=== PATIENT | female | born 1995 | race Caucasian/White ===

== ENCOUNTER 2018-05-09 16:59 | Emergency (ER) | payer OTHER | END 2018-05-09 17:10 | disposition home or self-care (01) | LOC: MW.ED 16:59 | DX: Z53.21 Procedure and treatment not carried out due to patient leaving prior to being seen by health care provider (principal) ==

== ENCOUNTER 2019-01-12 20:06 | Emergency (ER) | payer OTHER ==
--- NOTE | 2019-01-12 20:18 | EDM.PDOC ---
ED HPI GENERAL MEDICAL PROBLEM - General Chief Complaint: Abdominal Pain Stated Complaint: ABD PAIN Time Seen by Provider: 01/12/19 20:11 - History of Present Illness INITIAL COMMENTS - FREE TEXT/NARRATIVE: HISTORY AND PHYSICAL: History of present illness: Patient's 23-year-old white female presents with a concern of 2 year history of intermittent crampy abdominal pain along with irregular bowel movements. She missed work today and was concerned about evaluation for this chronic pain as well as a note for work. There is no fever chills nausea vomiting urinary symptoms or other complaints Review of systems: As per history of present illness and below otherwise all systems reviewed and negative. Past medical history: As per history of present illness and as reviewed below otherwise noncontributory. Surgical history: As per history of present illness and as reviewed below otherwise noncontributory. Social history: No reported history of drug or alcohol abuse. Family history: As per history of present illness and as reviewed below otherwise noncontributory. Physical exam: HEENT: Atraumatic, normocephalic, pupils reactive, negative for conjunctival pallor or scleral icterus, mucous membranes moist, throat clear, neck supple, nontender, trachea midline. Lungs: Clear to auscultation, breath sounds equal bilaterally, chest nontender. Heart: S1S2, regular, negative for clicks, rubs, or JVD. Abdomen: Soft, nondistended, nontender. Negative for masses or hepatosplenomegaly. Negative for costovertebral tenderness. Pelvis: Stable nontender. Genitourinary: Deferred. Rectal: Deferred. Extremities: Atraumatic, negative for cords or calf pain. Neurovascular unremarkable. Neuro: Awake, alert, oriented. Cranial nerves II through XII unremarkable. Cerebellum unremarkable. Motor and sensory unremarkable throughout. Exam nonfocal. Diagnostics: CBC CMP amylase lipase UA hCG abdominal series with chest x-ray Therapeutics: None Impression: #1 chronic intermittent abdominal pain etiology to be determined Definitive disposition and diagnosis as appropriate pending reevaluation and review of above. - Related Data Allergies Allergy/AdvReac Type Severity Reaction Status Date / Time No Known Allergies Allergy Verified 01/12/19 20:16 Home Meds: Home Meds . [No Known Home Meds] 04/28/18 [History] Past Medical History - Past Health History Medical/Surgical History: Denies Medical/Surgical History ED ROS GENERAL - Review of Systems Review Of Systems: ROS reveals no pertinent complaints other than HPI. ED EXAM, GENERAL - Physical Exam Exam: See Below (See dictation) Course - Orders/Labs/Meds Orders: Active Orders 24 hr Category Date Time Status Abdomen Series w Chest 1V [CR] Stat Exams 01/12/19 20:16 Ordered AMYLASE [CHEM] Stat Lab 01/12/19 20:15 Ordered CBC WITH AUTO DIFF [HEME] Stat Lab 01/12/19 20:15 Ordered COMPREHENSIVE METABOLIC PN,CMP [CHEM] Stat Lab 01/12/19 20:16 Ordered HCG QUALITATIVE,SERUM [CHEM] Stat Lab 01/12/19 20:16 Ordered UA RFX STEFANIA AND CULT IF INDIC [URIN] Stat Lab 01/12/19 20:16 Ordered Departure - Departure Time of Disposition: 20:17 Disposition: Home, Self-Care 01 Condition: Good Clinical Impression: Chronic abdominal pain - Discharge Information Referrals: PCP,None [Primary Care Provider] - Additional Instructions: The following information is given to patients seen in the emergency department who are being discharged to home. This information is to outline your options for follow-up care. We provide all patients seen in our emergency department with a follow-up referral. The need for follow-up, as well as the timing and circumstances, are variable depending upon the specifics of your emergency department visit. If you don't have a primary care physician on staff, we will provide you with a referral. We always advise you to contact your personal physician following an emergency department visit to inform them of the circumstance of the visit and for follow-up with them and/or the need for any referrals to a consulting specialist. The emergency department will also refer you to a specialist when appropriate. This referral assures that you have the opportunity for followup care with a specialist. All of these measure are taken in an effort to provide you with optimal care, which includes your followup. Under all circumstances we always encourage you to contact your private physician who remains a resource for coordinating your care. When calling for followup care, please make the office aware that this follow-up is from your recent emergency room visit. If for any reason you are refused follow-up, please contact the [facility] emergency department at and asked to speak to the emergency department charge nurse. [facility] [address] [place] [id number] [facility] Specialty Care - General Surgery Professional Building [address] [place] [address], [address] [place] [address] Follow-up primary care in Gen. surgery above: Schedule routine appointments return as needed as discussed - My Orders Last 24 Hours: My Active Orders 01/12/19 20:15 AMYLASE [CHEM] Stat CBC WITH AUTO DIFF [HEME] Stat 01/12/19 20:16 Abdomen Series w Chest 1V [CR] Stat COMPREHENSIVE METABOLIC PN,CMP [CHEM] Stat HCG QUALITATIVE,SERUM [CHEM] Stat UA RFX STEFANIA AND CULT IF INDIC [URIN] Stat - Assessment/Plan Last 24 Hours: My Active Orders 01/12/19 20:15 AMYLASE [CHEM] Stat CBC WITH AUTO DIFF [HEME] Stat 01/12/19 20:16 Abdomen Series w Chest 1V [CR] Stat COMPREHENSIVE METABOLIC PN,CMP [CHEM] Stat HCG QUALITATIVE,SERUM [CHEM] Stat UA RFX STEFANIA AND CULT IF INDIC [URIN] Stat
[2019-01-12 20:50] LABS: CHLORIDE,CL 104 mmol/L (98-107); SODIUM,NA 140 mmol/L (136-145)
--- NOTE | 2019-01-12 21:29 | CR ---
INDICATION: : Abdominal pain for approximately 2 years. COMPARISON: None available. FINDINGS: Erect and supine films of the abdomen were combined with an erect film of the chest. In the abdomen, there is no sign of distention of the small bowel or colon to suggest obstruction or ileus. There is no sign of free air or distinct mass. The osseous structures are normal in appearance for the patient`s age. In the chest, the lungs are clear and the heart and mediastinum are normal in appearance. IMPRESSION: Normal abdomen two views with chest. Dictated by Robbi Villarreal MD @ Jan 12 2019 9:26PM Signed by Dr. Robbi Villarreal @ Jan 12 2019 9:27PM
== END 2019-01-12 21:15 | disposition home or self-care (01) ==
LOC: MW.ED 20:06
DX: R10.9 Unspecified abdominal pain (principal); G89.29 Other chronic pain
CPT/HCPCS: 36415; 74022; 74022-26; 80053; 81001; 82150; 83690; 84703; 85025; 87086; 99283; 99284-25

== ENCOUNTER 2019-03-22 19:52 | Emergency (ER) | payer OTHER ==
[2019-03-22] MEDS ORDERED: Ketorolac 30 MG/ML SDV IVPUSH ONE (19:55)
[2019-03-22] MEDS ORDERED: Sodium Chloride 0.9% 1,000 ML IV ONE (19:55)
[2019-03-22] MEDS ORDERED: Ondansetron 4 MG/2 ML SDV IVPUSH ONE (19:55)
--- NOTE | 2019-03-22 19:58 | EDM.PDOC ---
ED HPI GENERAL MEDICAL PROBLEM - General Chief Complaint: Abdominal Pain Stated Complaint: STOMACH PAIN Time Seen by Provider: 03/22/19 19:55 Source of Information: Reports: Patient History Limitations: Reports: No Limitations - History of Present Illness INITIAL COMMENTS - FREE TEXT/NARRATIVE: HISTORY AND PHYSICAL: History of present illness: Patient is a 23-year-old female who presents to the emergency room today with complaints of low abdominal pain and intermittent cramping. She states she is currently 12 weeks and has seen Yolie Penn for her needs. She denies any vaginal bleeding although "thought she saw blood" while she was in the shower. Had no bleeding after that, no bleeding currently. She denies any injury, trauma or falls. No recent sexual activity. Patient denies any fever, chills, headache, change in vision, syncope or near syncope. Denies any chest pain, back pain, shortness of breath or cough. Denies any vomiting, diarrhea, constipation or dysuria. Has not noted any blood in urine or stool. Patient has been eating and drinking appropriately. , P: 1. Review of systems: As per history of present illness and below otherwise all systems reviewed and negative. Past medical history: As per history of present illness and as reviewed below otherwise noncontributory. Surgical history: As per history of present illness and as reviewed below otherwise noncontributory. Social history: See social history for further information Family history: As per history of present illness and as reviewed below otherwise noncontributory. Physical exam: General: Well-developed and well-nourished 23-year-old female. Alert and oriented. Nontoxic appearing and in no acute distress. HEENT: Atraumatic, normocephalic, pupils equal and reactive bilaterally, negative for conjunctival pallor or scleral icterus, mucous membranes moist, trachea midline. No drooling or trismus noted. No meningeal signs. No hot potato voice noted. Lungs: Clear to auscultation, breath sounds equal bilaterally, chest nontender. Heart: S1S2, regular rate and rhythm without overt murmur Abdomen: Soft, nondistended, nontender. Negative for masses. Negative for costovertebral tenderness. Pelvis: Stable nontender. Genitourinary: Cervical os is closed. No vaginal bleeding. No cervical motion tenderness. Skin: Intact, warm, dry. No lesions or rashes noted. Extremities: Atraumatic, moves all extremities per self without difficulty or deficits, ambulatory. Neurovascular unremarkable. Neuro: Awake, alert, oriented. Cranial nerves II through XII unremarkable. Cerebellum unremarkable. Motor and sensory unremarkable throughout. Exam nonfocal. Notes: Patient denies any vaginal bleeding at this time. States she has a relationship with Yolie Novak and will follow up with her. Lab work is unremarkable. Patient is A negative. A single live IUP approximately 12 weeks. Supportive care measures were reviewed and discussed. Voices understanding and is agreeable to plan of care. Denies any further questions or concerns at this time. Diagnostics: CBC, CMP, Quant HCG, UA, AB/RH, OB ultrasound Therapeutics: IV fluids, Zofran Prescription: None Impression: Threatened miscarriage Plan: 1. Please start and/or continue to take your vitamin with folic acid once daily. 2. Pelvic rest until cleared by your OBGYN (no tampons, sex, etc...) 3. Tylenol as needed for pain management. 4. Follow up with her [employer] in the next 1-2 days. Return to the ED as needed and as discussed. Definitive disposition and diagnosis as appropriate pending reevaluation and review of above. Onset: Today Location: Reports: Pelvis no pain Pain Score (Numeric/FACES): 0 - Related Data Allergies Allergy/AdvReac Type Severity Reaction Status Date / Time No Known Allergies Allergy Verified 01/12/19 20:16 Home Meds: Home Meds . [No Known Home Meds] 04/28/18 [History] Past Medical History - Past Health History Medical/Surgical History: Denies Medical/Surgical History Hematologic History: Reports: None - Infectious Disease History Infectious Disease History: Reports: None Social & Family History - Family History Family Medical History: Noncontributory - Caffeine Use Caffeine Use: Reports: Coffee ED ROS GENERAL - Review of Systems Review Of Systems: ROS reveals no pertinent complaints other than HPI. ED EXAM, GI/ABD - Physical Exam Exam: See Below (See dictation) Course - Vital Signs Last Recorded V/S: Last Vital Signs Temp 97 F 03/22/19 19:58 Pulse 76 03/22/19 19:58 Resp 14 03/22/19 19:58 BP 108/75 03/22/19 19:58 Pulse Ox 99 03/22/19 19:58 - Orders/Labs/Meds Labs: Laboratory Tests 03/22/19 03/22/19 03/22/19 Range/Units 20:15 20:15 20:15 WBC 9.28 (4.0-11.0) K/uL RBC 4.46 (4.30-5.90) M/uL Hgb 14.0 (12.0-16.0) g/dL Hct 40.5 (36.0-46.0) % MCV 90.8 (80.0-98.0) fL MCH 31.4 (27.0-32.0) pg MCHC 34.6 (31.0-37.0) g/dL RDW Std Deviation 38.3 (28.0-62.0) fl RDW Coeff of Reza 12 (11.0-15.0) % Plt Count 184 (150-400) K/uL MPV 11.70 (7.40-12.00) fL Neut % (Auto) 69.8 (48.0-80.0) % Lymph % (Auto) 26.6 (16.0-40.0) % Wood % (Auto) 2.8 (0.0-15.0) % Eos % (Auto) 0.6 (0.0-7.0) % Baso % (Auto) 0.2 (0.0-1.5) % Neut # (Auto) 6.5 H (1.4-5.7) K/uL Lymph # (Auto) 2.5 H (0.6-2.4) K/uL Wood # (Auto) 0.3 (0.0-0.8) K/uL Eos # (Auto) 0.1 (0.0-0.7) K/uL Baso # (Auto) 0.0 (0.0-0.1) K/uL Nucleated RBC % 0.0 /100WBC Nucleated RBCs # 0 K/uL Sodium 137 (136-145) mmol/L Potassium 3.7 (3.5-5.1) mmol/L Chloride 101 (98-107) mmol/L Carbon Dioxide 23.4 (21.0-32.0) mmol/L BUN 9 (7.0-18.0) mg/dL Creatinine 0.5 L (0.6-1.0) mg/dL Est Cr Clr Drug Dosing 132.05 mL/min Estimated GFR (MDRD) > 60.0 ml/min Glucose 111 H (74-106) mg/dL Calcium 9.4 (8.5-10.1) mg/dL Total Bilirubin 0.5 (0.2-1.0) mg/dL AST 27 (15-37) IU/L ALT 37 (14-63) IU/L Alkaline Phosphatase 69 (46-116) U/L Total Protein 7.5 (6.4-8.2) g/dL Albumin 3.7 (3.4-5.0) g/dL Globulin 3.8 (2.6-4.0) g/dL Albumin/Globulin Ratio 1.0 (0.9-1.6) Lipase 75 (73-393) U/L HCG, Quant 09008.0 mIU/mL Urine Color Urine Appearance Urine pH (5.0-8.0) Ur Specific [place] (1.001-1.035) Urine Protein (NEGATIVE) mg/dL Urine Glucose (UA) (NEGATIVE) mg/dL Urine Ketones (NEGATIVE) mg/dL Urine Occult Blood (NEGATIVE) Urine Nitrite (NEGATIVE) Urine Bilirubin (NEGATIVE) Urine Ictotest Urine Urobilinogen (<2.0) EU/dL Ur Leukocyte Esterase (NEGATIVE) Blood Type 03/22/19 03/22/19 Range/Units 20:15 21:11 WBC (4.0-11.0) K/uL RBC (4.30-5.90) M/uL Hgb (12.0-16.0) g/dL Hct (36.0-46.0) % MCV (80.0-98.0) fL MCH (27.0-32.0) pg MCHC (31.0-37.0) g/dL RDW Std Deviation (28.0-62.0) fl RDW Coeff of Reza (11.0-15.0) % Plt Count (150-400) K/uL MPV (7.40-12.00) fL Neut % (Auto) (48.0-80.0) % Lymph % (Auto) (16.0-40.0) % Wood % (Auto) (0.0-15.0) % Eos % (Auto) (0.0-7.0) % Baso % (Auto) (0.0-1.5) % Neut # (Auto) (1.4-5.7) K/uL Lymph # (Auto) (0.6-2.4) K/uL Wood # (Auto) (0.0-0.8) K/uL Eos # (Auto) (0.0-0.7) K/uL Baso # (Auto) (0.0-0.1) K/uL Nucleated RBC % /100WBC Nucleated RBCs # K/uL Sodium (136-145) mmol/L Potassium (3.5-5.1) mmol/L Chloride (98-107) mmol/L Carbon Dioxide (21.0-32.0) mmol/L BUN (7.0-18.0) mg/dL Creatinine (0.6-1.0) mg/dL Est Cr Clr Drug Dosing mL/min Estimated GFR (MDRD) ml/min Glucose (74-106) mg/dL Calcium (8.5-10.1) mg/dL Total Bilirubin (0.2-1.0) mg/dL AST (15-37) IU/L ALT (14-63) IU/L Alkaline Phosphatase (46-116) U/L Total Protein (6.4-8.2) g/dL Albumin (3.4-5.0) g/dL Globulin (2.6-4.0) g/dL Albumin/Globulin Ratio (0.9-1.6) Lipase (73-393) U/L HCG, Quant mIU/mL Urine Color YELLOW Urine Appearance CLEAR Urine pH 6.0 (5.0-8.0) Ur Specific [place] 1.025 (1.001-1.035) Urine Protein NEGATIVE (NEGATIVE) mg/dL Urine Glucose (UA) NEGATIVE (NEGATIVE) mg/dL Urine Ketones >=80 (NEGATIVE) mg/dL Urine Occult Blood NEGATIVE (NEGATIVE) Urine Nitrite NEGATIVE (NEGATIVE) Urine Bilirubin SMALL H (NEGATIVE) Urine Ictotest NEGATIVE Urine Urobilinogen 0.2 (<2.0) EU/dL Ur Leukocyte Esterase NEGATIVE (NEGATIVE) Blood Type A NEGATIVE Meds: Medications Discontinued Medications Generic Name Dose Route Start Last Admin Trade Name Freq PRN Reason Stop Dose Admin Sodium Chloride 1,000 mls @ 999 mls/hr 03/22/19 19:55 08/01/19 20:00 Normal Saline IV 03/22/19 20:55 999 mls/hr STAT ONE Administration Ketorolac Tromethamine 30 mg 03/22/19 19:55 03/22/19 20:00 Toradol IVPUSH 03/22/19 19:56 30 mg ONETIME ONE Administration Ondansetron HCl 4 mg 03/22/19 19:55 03/22/19 20:01 Zofran IVPUSH 03/22/19 19:56 4 mg ONETIME ONE Administration Departure - Departure Time of Disposition: 22:42 Disposition: Home, Self-Care 01 Clinical Impression: Threatened miscarriage - Discharge Information Instructions: Threatened Miscarriage, [id number] Referrals: PCP,None [Primary Care Provider] - Forms: ED Department Discharge Additional Instructions: The following information is given to patients seen in the emergency department who are being discharged to home. This information is to outline your options for follow-up care. We provide all patients seen in our emergency department with a follow-up referral. The need for follow-up, as well as the timing and circumstances, are variable depending upon the specifics of your emergency department visit. If you don't have a primary care physician on staff, we will provide you with a referral. We always advise you to contact your personal physician following an emergency department visit to inform them of the circumstance of the visit and for follow-up with them and/or the need for any referrals to a consulting specialist. The emergency department will also refer you to a specialist when appropriate. This referral assures that you have the opportunity for follow-up care with a specialist. All of these measure are taken in an effort to provide you with optimal care, which includes your follow-up. Under all circumstances we always encourage you to contact your private physician who remains a resource for coordinating your care. When calling for follow-up care, please make the office aware that this follow-up is from your recent emergency room visit. If for any reason you are refused follow-up, please contact the [facility] Emergency Department at and asked to speak to the emergency department charge nurse. [facility] [address] [place] [id number] [facility] [address] [place] [address] 1. Please start and/or continue to take your vitamin with folic acid once daily. 2. Pelvic rest until cleared by your OBGYN (no tampons, sex, etc...) 3. Tylenol as needed for pain management. 4. Follow up with her [employer] in the next 1-2 days. Return to the ED as needed and as discussed.
[2019-03-22 20:43] LABS: BLOOD UREA NITROGEN,BUN 9 mg/dL (7.0-18.0); CARBON DIOXIDE,CO2 23.4 mmol/L (21.0-32.0); CHLORIDE,CL 101 mmol/L (98-107); GLUCOSE RANDOM 111 mg/dL (74-106); LIPASE 75 U/L (73-393); POTASSIUM,K 3.7 mmol/L (3.5-5.1); SODIUM,NA 137 mmol/L (136-145)
--- NOTE | 2019-03-22 22:21 | US ---
Indication: Twelve week , vaginal bleeding, evaluate viability Technique: Multiple grayscale and Doppler sonographic images of the pelvis. Comparison: None Findings: The uterus measures 9.7 x 7.2 x 8.2 cm. There is a single live intrauterine gestation with crown-rump length of 5.2 cm, corresponding to approximate gestational age of 12 weeks, 0 days. A heart beat is detected with rate of 158 beats per minute. There is otherwise normal sonographic appearance of the uterus. The placenta is posterior in location. The cervix is closed. Impression: Single live intrauterine gestation with approximate age of 12 weeks 0 days. Heart rate is measured at 158 bpm. Dictated by Leonard Ortiz MD @ Mar 22 2019 10:19PM Signed by Dr. Leonard Ortiz @ Mar 22 2019 10:19PM
== END 2019-03-22 22:58 | disposition home or self-care (01) ==
LOC: MW.ED 19:52
DX: O20.0 Threatened abortion (principal); Z3A.12 12 weeks gestation of pregnancy
CPT/HCPCS: 36415; 76801; 80053; 81003; 83690; 84702; 85025; 86900; 86901; 96361; 96374; 96375; 99284; J1885; J2405; J7040

== ENCOUNTER 2019-09-10 11:52 | Inpatient (IN) | payer OTHER ==
[2019-09-10] MEDS ORDERED: ceFAZolin 2 GM in Premix Bag 1 BAG IV ONE (13:11)
[2019-09-10] MEDS ORDERED: Citric Acid/Sodium Citrate Solution 30 ML Cup PO ONE (13:11)
[2019-09-10] MEDS ORDERED: Sodium Chloride 0.9% 10 ML Syringe FLUSH PRN (13:11)
[2019-09-10] MEDS ORDERED: Sodium Chloride 0.9% 10 ML SDV IV PRN (13:11)
[2019-09-10] MEDS ORDERED: Sodium Chloride 0.9% 2.5 ML Syringe FLUSH PRN (13:11)
[2019-09-10] MEDS ORDERED: Oxytocin/0.9 % Sodium Chloride 30 UNIT/500 ML BAG IV SCH (13:15)
[2019-09-10] MEDS ORDERED: Lactated Ringers 1,000 ML IV SCH ×2 (13:15→15:00)
[2019-09-10] MEDS ORDERED: Ondansetron 4 MG/2 ML SDV ONE (13:23)
[2019-09-10] MEDS ORDERED: Oxytocin 10 Units/1 ML SDV ONE (13:23)
[2019-09-10] MEDS ORDERED: Phenylephrine/Normal Saline 100 MCG/ML 10 ML Syringe ONE ×2 (13:23→13:24)
[2019-09-10] MEDS ORDERED: Morphine PF 10 MG/10 ML SDV ONE (13:26)
[2019-09-10] MEDS ORDERED: Phenylephrine 1% 10 MG/ML SDV ONE (13:29)
[2019-09-10] MEDS ORDERED: Propofol 200 MG/20 ML SDV ONE (13:49)
[2019-09-10] MEDS ORDERED: Acetaminophen/oxyCODONE 325-5 MG Tab PO PRN ×2 (14:20→14:47)
--- NOTE | 2019-09-10 14:20 | PCM.PREANE ---
Preanesthetic Assessment - Anesthesia/Transfusion/Family Hx Anesthesia History: No Prior Anesthesia Family History of Anesthesia Reaction: No - Physical Assessment NPO Status Date: 09/10/19 NPO Status Time: 00:05 Height: 1.55 m Weight: 68.039 kg ASA Class: 1E - Lab Values: Laboratory Last Values WBC 11.27 K/uL (4.0-11.0) H 09/10/19 13:34 RBC 3.87 M/uL (4.30-5.90) L 09/10/19 13:34 Hgb 10.6 g/dL (12.0-16.0) L 09/10/19 13:34 Hct 32.3 % (36.0-46.0) L 09/10/19 13:34 MCV 83.5 fL (80.0-98.0) 09/10/19 13:34 MCH 27.4 pg (27.0-32.0) 09/10/19 13:34 MCHC 32.8 g/dL (31.0-37.0) 09/10/19 13:34 RDW Std Deviation 41.7 fl (28.0-62.0) 09/10/19 13:34 RDW Coeff of Reza 14 % (11.0-15.0) 09/10/19 13:34 Plt Count 170 K/uL (150-400) 09/10/19 13:34 MPV 12.40 fL (7.40-12.00) H 09/10/19 13:34 Nucleated RBC % 0.0 /100WBC 09/10/19 13:34 Nucleated RBCs # 0 K/uL 09/10/19 13:34 Membrane Rupture POSITIVE 09/10/19 12:12 Blood Type A NEGATIVE 09/10/19 13:34 Antibody Screen NEGATIVE 09/10/19 13:34 Crossmatch See Detail 09/10/19 13:34 - Allergies Allergies/Adverse Reactions: Allergies Allergy/AdvReac Type Severity Reaction Status Date / Time No Known Allergies Allergy Verified 09/10/19 12:20 - Acknowledgements Anesthesia Type Planned: Spinal Pt an Appropriate Candidate for the Planned Anesthesia: Yes Alternatives and Risks of Anesthesia Discussed w Pt/Guardian: Yes Pt/Guardian Understands and Agrees with Anesthesia Plan: Yes PreAnesthesia Questionnaire - Past Health History Medical/Surgical History: Denies Medical/Surgical History Hematologic History: Reports: None - Infectious Disease History Infectious Disease History: Reports: None - HOME MEDS Home Medications: Home Meds . [No Known Home Meds] 04/28/18 [History] - CURRENT (IN HOUSE) MEDS Current Meds: Current Medications Lactated Ringer's (Ringers, Lactated) 1,000 mls @ 500 mls/hr IV BOLUS TEJ Last Admin: 09/10/19 13:23 Dose: 999 mls/hr Oxytocin/Sodium Chloride (Oxytocin 30 Unit/500 Ml-Ns) 30 unit in 500 mls @ 250 mls/hr IV TITRATE TEJ Sodium Chloride (Saline Flush) 10 ml FLUSH ASDIRECTED PRN PRN Reason: Keep Vein Open Sodium Chloride (Saline Flush) 2.5 ml FLUSH ASDIRECTED PRN PRN Reason: Keep Vein Open Sodium Chloride (Normal Saline) 10 ml IV ASDIRECTED PRN PRN Reason: IV Use Discontinued Medications Citric Acid/Sodium Citrate (Bicitra Solution) 30 ml PO ONETIME ONE Stop: 09/10/19 13:12 Last Admin: 09/10/19 13:35 Dose: 30 ml Cefazolin Sodium/Dextrose 2 gm (/ Premix) 50 mls @ 100 mls/hr IV ONETIME ONE Stop: 09/10/19 13:40 Morphine Sulfate (Duramorph Pf) Confirm Administered Dose 10 mg .ROUTE .STK-MED ONE Stop: 09/10/19 13:27 Ondansetron HCl (Zofran) Confirm Administered Dose 4 mg .ROUTE .STK-MED ONE Stop: 09/10/19 13:24 Oxytocin (Pitocin) Confirm Administered Dose 10 unit .ROUTE .STK-MED ONE Stop: 09/10/19 13:24 Phenylephrine HCl (Phenylephrine In Ns 100 Mcg/Ml) Confirm Administered Dose 1 mg .ROUTE .STK-MED ONE Stop: 09/10/19 13:24 Phenylephrine HCl (Phenylephrine In Ns 100 Mcg/Ml) Confirm Administered Dose 2 mg .ROUTE .STK-MED ONE Stop: 09/10/19 13:25 Phenylephrine HCl (Darwin-Synephrine) Confirm Administered Dose 10 mg .ROUTE .STK- MED ONE Stop: 09/10/19 13:30 Propofol (Diprivan 20 Ml) Confirm Administered Dose 200 mg .ROUTE .STK-MED ONE Stop: 09/10/19 13:50
[2019-09-10] MEDS ORDERED: Octyl 2-Cyanoacrylate 1 Tube ONE (14:25)
[2019-09-10] MEDS ORDERED: Oxytocin 10 Units/1 ML SDV IM PRN (14:47)
[2019-09-10] MEDS ORDERED: Tranexamic Acid 1,000 MG in Sodium Chloride 0.9% 100 ML IV PRN (14:47)
[2019-09-10] MEDS ORDERED: Bisacodyl 10 MG Supp RECTAL PRN (14:47)
[2019-09-10] MEDS ORDERED: Misoprostol 200 MCG Tab RECTAL PRN (14:47)
[2019-09-10] MEDS ORDERED: Methylergonovine 0.2 MG/1 ML Amp IM PRN (14:47)
[2019-09-10] MEDS ORDERED: Lanolin 100% Cream 7 GM Tube TOP PRN (14:47)
[2019-09-10] MEDS ORDERED: Ondansetron 4 MG/2 ML SDV IVPUSH PRN (14:47)
[2019-09-10] MEDS ORDERED: diphenhydrAMINE 50 MG/ML SDV IVPUSH PRN (14:47)
--- NOTE | 2019-09-10 14:51 | PCM.OPNOTE ---
- General Post-Op/Procedure Note Date of Surgery/Procedure: 09/10/19 Operative Procedure(s): Emergency Primary C/section. Pre Op Diagnosis: IUP 35+ wks Margenal Placenta previa bleeding. Post-Op Diagnosis: Same Anesthesia Technique: Spinal Primary Surgeon: Juan C Francis Non Licensed Operator: Yolie Penn EBL in mLs: 800 Complications: None Condition: Good
--- NOTE | 2019-09-10 14:53 | PCM.LDHP ---
L&D History of Present Illness - General Date of Service: 09/10/19 Admit Problem/Dx: Patient Status Order with Admit Dx/Problem 09/10/19 12:05 Patient Status [ADT] Routine 09/10/19 13:00 Patient Status [ADT] Routine 09/10/19 14:48 Patient Status [ADT] Routine Admission Diagnosis/Problem Admission Diagnosis/Problem Source of Information: Patient History Limitations: Reports: No Limitations - History of Present Illness Improves with: Reports: None Worsens with: Reports: None Associated Symptoms: Reports: N - Related Data Allergies/Adverse Reactions: Allergies Allergy/AdvReac Type Severity Reaction Status Date / Time No Known Allergies Allergy Verified 09/10/19 12:20 Home Medications: Home Meds . [No Known Home Meds] 04/28/18 [History] Past Medical History - Past Health History Medical/Surgical History: Denies Medical/Surgical History Hematologic History: Reports: None - Infectious Disease History Infectious Disease History: Reports: None Social & Family History - Family History Family Medical History: Noncontributory - Caffeine Use Caffeine Use: Reports: Coffee H&P Review of Systems - Review of Systems: Review Of Systems: See Below General: Reports: No Symptoms HEENT: Reports: No Symptoms Pulmonary: Reports: No Symptoms Cardiovascular: Reports: No Symptoms Gastrointestinal: Reports: No Symptoms Genitourinary: Reports: No Symptoms Musculoskeletal: Reports: No Symptoms Skin: Reports: No Symptoms Psychiatric: Reports: No Symptoms Neurological: Reports: No Symptoms Hematologic/Lymphatic: Reports: No Symptoms Immunologic: Reports: No Symptoms L&D Exam - Exam Exam: See Below - Vital Signs Weight: 68.039 kg - OB Specific Contraction Intensity: Mild - Exam General: Alert, Oriented HEENT: PERRLA, Conjunctiva Clear, EACs Clear, EOMI, Hearing Intact, Mucosa Moist & Sylvia, Nares Patent, Normal Nasal Septum, Posterior Pharynx Clear, TMs Clear Neck: Supple, Trachea Midline Lungs: Clear to Auscultation, Normal Respiratory Effort Cardiovascular: Regular Rate, Regular Rhythm GI/Abdominal Exam: Normal Bowel Sounds, Soft, Non-Tender, No Organomegaly, No Distention, No Abnormal Bruit, No Mass, Pelvis Stable Rectal Exam: Normal Exam, Normal Rectal Tone Genitourinary: Normal external exam, Normal bimanual exam, Normal speculum exam Back Exam: Normal Inspection, Full Range of Motion Extremities: Normal Inspection, Normal Range of Motion, Non-Tender, No Pedal Edema, Normal Capillary Refill Skin: Warm, Dry, Intact Neurological: Cranial Nerves Intact, Reflexes Equal Bilateral Psychiatric: Alert, Normal Affect, Normal Mood - Patient Data Lab Results Last 24 hrs: Laboratory Results - last 24 hr 09/10/19 09/10/19 09/10/19 Range/Units 12:12 13:34 13:34 WBC 11.27 H (4.0-11.0) K/uL RBC 3.87 L (4.30-5.90) M/uL Hgb 10.6 L (12.0-16.0) g/dL Hct 32.3 L (36.0-46.0) % MCV 83.5 (80.0-98.0) fL MCH 27.4 (27.0-32.0) pg MCHC 32.8 (31.0-37.0) g/dL RDW Std Deviation 41.7 (28.0-62.0) fl RDW Coeff of Reza 14 (11.0-15.0) % Plt Count 170 (150-400) K/uL MPV 12.40 H (7.40-12.00) fL Nucleated RBC % 0.0 /100WBC Nucleated RBCs # 0 K/uL Membrane Rupture POSITIVE Blood Type A NEGATIVE Antibody Screen NEGATIVE Crossmatch See Detail Result Diagrams: 09/10/19 13:34 Problem List Initiated/Reviewed/Updated: Yes Orders Last 24hrs: Active Orders 24 hr Category Date Time Status Patient Status [ADT] Routine ADT 09/10/19 14:48 Ordered Ambulate [RC] PER UNIT ROUTINE Care 09/10/19 14:48 Ordered Antiembolic Devices [RC] PER UNIT ROUTINE Care 09/10/19 14:48 Ordered Communication Order [RC] PER UNIT ROUTINE Care 09/10/19 14:48 Ordered Communication Order [RC] PER UNIT ROUTINE Care 09/10/19 14:48 Ordered Communication Order [RC] Per Unit Routine Care 09/10/19 14:48 Ordered Non Stress Test [RC] PER UNIT ROUTINE Care 09/10/19 12:05 Active May Shower [RC] ASDIRECTED Care 09/10/19 14:48 Ordered Notify Provider Vital Signs [RC] PRN Care 09/10/19 13:13 Active Procedure Site Prep Instruct [RC] ASDIRECTED Care 09/10/19 13:11 Active RT Incentive Spirometry [RC] Q2HWA Care 09/10/19 14:48 Ordered Up ad Sharyn [RC] ASDIRECTED Care 09/10/19 12:13 Active Up ad Sharyn [RC] ASDIRECTED Care 09/10/19 13:11 Active Vaginal Exam [RC] Click to Edit Care 09/10/19 12:13 Active Verify Patient Consent Obtain [RC] ASDIRECTED Care 09/10/19 13:11 Active Vital Signs [RC] PER UNIT ROUTINE Care 09/10/19 12:13 Active Vital Signs [RC] PER UNIT ROUTINE Care 09/10/19 13:11 Active Vital Signs [RC] PER UNIT ROUTINE Care 09/10/19 14:48 Ordered GBS [CULTURE GROUP B STREP] [RM] Routine Lab 09/10/19 13:13 Received HEMOGLOBIN/HEMATOCRIT,HH [HEME] Timed Lab 09/11/19 05:11 Ordered RED BLOOD CELLS LP [BBK] Routine Lab 09/10/19 13:34 Results RPR (SYPHILIS SERO) W/ RFLX [REF] Routine Lab 09/10/19 13:34 Received TYPE AND SCREEN [BBK] Routine Lab 09/10/19 13:34 Results Acetaminophen/oxyCODONE [Percocet 325-5 MG] Med 09/10/19 14:20 Active 1 tab PO Q4H PRN Acetaminophen/oxyCODONE [Percocet 325-5 MG] Med 09/10/19 14:47 Ordered 1 tab PO Q4H PRN Acetaminophen/oxyCODONE [Percocet 325-5 MG] Med 09/10/19 14:47 Ordered 2 tab PO Q4H PRN Docusate Sodium [Colace] Med 09/10/19 21:00 Ordered 100 mg PO BID Ibuprofen [Motrin] Med 09/10/19 14:47 Ordered 800 mg PO Q8H PRN Ketorolac [Toradol] Med 09/10/19 15:00 Ordered 30 mg IVPUSH Q6H Lactated Ringers @ 125 MLS/HR(1000ml) Med 09/10/19 15:00 Ordered Lactated Ringers [Ringers, Lactated] 1,000 ml IV ASDIRECTED Lactated Ringers [Ringers, Lactated] 1,000 ml Med 09/10/19 13:15 Active IV BOLUS Lanolin [Lansinoh HPA] Med 09/10/19 14:47 Ordered See Dose Instructions TOP ASDIRECTED PRN Methylergonovine [Methergine] Med 09/10/19 14:47 Ordered 0.2 mg IM ONETIME PRN Ondansetron [Zofran] Med 09/10/19 14:47 Ordered 4 mg IVPUSH Q4H PRN Oxytocin [Pitocin] Med 09/10/19 14:47 Ordered 10 unit IM ASDIRECTED PRN Oxytocin/0.9 % Sodium Chloride [Oxytocin 30 Unit/500 ML Med 09/10/19 13:15 Active -NS] 30 unit in 500 ml IV TITRATE Sodium Chloride 0.9% [Normal Saline] Med 09/10/19 13:11 Active 10 ml IV ASDIRECTED PRN Sodium Chloride 0.9% [Saline Flush] Med 09/10/19 13:11 Active 10 ml FLUSH ASDIRECTED PRN Sodium Chloride 0.9% [Saline Flush] Med 09/10/19 13:11 Active 2.5 ml FLUSH ASDIRECTED PRN Tranexamic Acid [Cyklokapron] 1,000 mg Med 09/10/19 14:47 Ordered Sodium Chloride 0.9% [Normal Saline] 100 ml IV ONETIME bisacodyL [Dulcolax] Med 09/10/19 14:47 Ordered 10 mg RECTAL ONETIME PRN diphenhydrAMINE [Benadryl] Med 09/10/19 14:47 Ordered 25 mg IVPUSH Q6H PRN miSOPROStoL [Cytotec] Med 09/10/19 14:47 Ordered 1,000 mcg RECTAL ONETIME PRN Assess Lochia [WOMSER] Per Unit Routine Ot 09/10/19 14:48 Ordered Assess Uterine Involution [WOMSER] Per Unit Routine Ot 09/10/19 14:48 Ordered Breast Pump [WOMSER] Per Unit Routine Ot 09/10/19 14:48 Ordered Peripheral IV Discontinue [OM.PC] Routine Ot 09/10/19 14:48 Ordered Peripheral IV Insertion Adult [OM.PC] Routine Ot 09/10/19 13:11 Ordered Schedule Procedure [COMM] Per Unit Routine Ot 09/10/19 13:11 Ordered Sequential Compression Device [OM.PC] Per Unit Routine Ot 09/10/19 14:48 Ordered Resuscitation Status Routine Resus Stat 09/10/19 12:13 Ordered Medication Orders Bisacodyl (Dulcolax) 10 mg RECTAL ONETIME PRN PRN Reason: Constipation Diphenhydramine HCl (Benadryl) 25 mg IVPUSH Q6H PRN PRN Reason: Itching or Nausea Docusate Sodium (Colace) 100 mg PO BID [facility] Emollient Ointment (Lansinoh Hpa) 0 gm TOP ASDIRECTED PRN PRN Reason: Sore Nipples Lactated Ringer's (Ringers, Lactated) 1,000 mls @ 500 mls/hr IV BOLUS [facility] Last Admin: 09/10/19 13:23 Dose: 999 mls/hr Oxytocin/Sodium Chloride (Oxytocin 30 Unit/500 Ml-Ns) 30 unit in 500 mls @ 250 mls/hr IV TITRATE [facility] Tranexamic Acid 1,000 mg/ (Sodium Chloride) 110 mls @ 660 mls/hr IV ONETIME PRN PRN Reason: Bleeding Lactated Ringer's (Ringers, Lactated) 1,000 mls @ 125 mls/hr IV ASDIRECTED [facility] Ibuprofen (Motrin) 800 mg PO Q8H PRN PRN Reason: mild pain or fever Ketorolac Tromethamine (Toradol) 30 mg IVPUSH Q6H [facility] Stop: 09/11/19 15:01 Methylergonovine Maleate (Methergine) 0.2 mg IM ONETIME PRN PRN Reason: Excessive Vaginal Bleeding Misoprostol (Cytotec) 1,000 mcg RECTAL ONETIME PRN PRN Reason: excessive bleeding Ondansetron HCl (Zofran) 4 mg IVPUSH Q4H PRN PRN Reason: Nausea/Vomiting Oxycodone/Acetaminophen (Percocet 325-5 Mg) 1 tab PO Q4H PRN PRN Reason: Pain (moderate 4-6) Oxycodone/Acetaminophen (Percocet 325-5 Mg) 1 tab PO Q4H PRN PRN Reason: Pain (moderate 4-6) Oxycodone/Acetaminophen (Percocet 325-5 Mg) 2 tab PO Q4H PRN PRN Reason: Pain (moderate 4-6) Oxytocin (Pitocin) 10 unit IM ASDIRECTED PRN PRN Reason: Excessive Vaginal Bleeding Sodium Chloride (Saline Flush) 10 ml FLUSH ASDIRECTED PRN PRN Reason: Keep Vein Open Sodium Chloride (Saline Flush) 2.5 ml FLUSH ASDIRECTED PRN PRN Reason: Keep Vein Open Sodium Chloride (Normal Saline) 10 ml IV ASDIRECTED PRN PRN Reason: IV Use Assessment/Plan Comment:: This patient is 35 weeks plus she is confirmed by marginal placenta previa by repeated ultrasound she presented today in labor and delivery with active bleeding passing copious amount of blood clots speculum examination shows copious amount of blood in the vagina and decision made to do primary low transverse section
[2019-09-10] MEDS ORDERED: Ketorolac 30 MG/ML SDV ONE (15:04)
[2019-09-10] MEDS: Ketorolac 30 MG/ML SDV IVPUSH SCH ×2 (15:08→21:00)
[2019-09-10] MEDS ORDERED: Diphtheria,Pertussis(Acell),Tetanus Vaccine 0.5 ML Syringe IM ONE (15:36)
--- NOTE | 2019-09-10 19:59 | OR ---
SURGEON: Juan C Francis MD DATE OF PROCEDURE: PREOPERATIVE DIAGNOSES: Intrauterine 35 weeks, marginal placenta previa, bleeding. POSTOPERATIVE DIAGNOSES: Intrauterine 35 weeks, marginal placenta previa, bleeding OPERATION PERFORMED: Emergency primary low-transverse section. PRIMARY SURGEON: Juan C Francis MD. POST GRADUATE INTERNSHIP: Yolie Penn. ANESTHESIA: Spinal. Tigre Dick and Dr. Ramon. ESTIMATED BLOOD LOSS: 800 mL. COMPLICATIONS: None. Ultrasonic Tester is present. FINDINGS: Normal uterus, tubes, and ovaries. INDICATION FOR SURGERY: This patient is 24. She is primigravida. She is followed in our office the jointly by myself and our nurse geography faculty member, Yolie Penn. The patient has confirmed low lying with marginal placenta previa. The patient is 35+ weeks. She presented today to Labor and Delivery in active bleeding and passing copious amount of blood clot. A decision is made to do primary low-transverse section. PROCEDURE IN DETAIL: The patient was brought to the OR, properly identified, and after adequate level of spinal anesthesia, the patient was prepped and draped in sterile fashion as usual. Low-transverse Pfannenstiel skin incision done. Elan's fascia and rectus fascia were opened in direction of the incision. The 2 recti muscles were peritoneal cavity was entered. Bladder flap was raised in the usual manner pushing the bladder away from the lower uterine segment and low- transverse uterine incision was done and extended manually with hand. Fetus was in a vertex position, delivered, cried immediately, handed to the bin packer and the resuscitation team was present at the time of the delivery. The placenta is delivered without any problem and repair of the lower uterine segment was done with 2-0 Vicryl continuous interlocking in 2 layers. Reperitonealization done with 3-0 Vicryl continuous and then the peritoneal cavity evacuated completely from all blood and blood clot and closed with 3-0 Vicryl continuous. The rectus fascia is closed with #1 PDS single strand continuous, the Elan's fascia with 3-0 Vicryl continuous, and the skin closed with Stratafix in a subcuticular fashion and Dermabond. Instrument and sponge count were correct. The patient tolerated the procedure well, went to recovery room in stable general condition. JOSEPH / MODL /[id number]
[2019-09-10] MEDS: Docusate Sodium 100 MG Cap PO SCH (21:01)
[2019-09-11] MEDS: Ketorolac 30 MG/ML SDV IVPUSH SCH ×3 (03:15→14:58)
[2019-09-11] MEDS: Docusate Sodium 100 MG Cap PO SCH ×3 (08:35→21:14)
--- NOTE | 2019-09-11 09:57 | PCM.PNPP ---
- General Info Date of Service: 09/11/19 Functional Status: Reports: Pain Controlled - Review of Systems General: Reports: No Symptoms HEENT: Reports: No Symptoms Pulmonary: Reports: No Symptoms Cardiovascular: Reports: No Symptoms Gastrointestinal: Reports: No Symptoms Genitourinary: Reports: No Symptoms Musculoskeletal: Reports: No Symptoms Skin: Reports: No Symptoms Neurological: Reports: No Symptoms Psychiatric: Reports: No Symptoms - General Info Date of Service: 09/11/19 - Patient Data Vital Signs - Most Recent: Last Vital Signs Temp 37.0 C 09/11/19 08:00 Pulse 76 09/11/19 09:00 Resp 16 09/11/19 09:00 BP 110/55 L 09/11/19 08:00 Pulse Ox 99 09/11/19 09:00 Weight - Most Recent: 68.039 kg I&O - Last 24 Hours: Intake & Output 09/10/19 09/11/19 09/11/19 22:59 06:59 14:59 Intake Total 2 952 Output Total 0925 6000 450 Balance -2148 -1098 -450 Lab Results - Last 24 Hours: Laboratory Results - last 24 hr 09/10/19 09/10/19 09/10/19 Range/Units 12:12 13:34 13:34 WBC 11.27 H (4.0-11.0) K/uL RBC 3.87 L (4.30-5.90) M/uL Hgb 10.6 L (12.0-16.0) g/dL Hct 32.3 L (36.0-46.0) % MCV 83.5 (80.0-98.0) fL MCH 27.4 (27.0-32.0) pg MCHC 32.8 (31.0-37.0) g/dL RDW Std Deviation 41.7 (28.0-62.0) fl RDW Coeff of Reza 14 (11.0-15.0) % Plt Count 170 (150-400) K/uL MPV 12.40 H (7.40-12.00) fL Nucleated RBC % 0.0 /100WBC Nucleated RBCs # 0 K/uL Membrane Rupture POSITIVE Blood Type A NEGATIVE Antibody Screen NEGATIVE Screen (NEGATIVE) RhIG Candidate? Rhogam Indicated Crossmatch See Detail 09/10/19 09/11/19 Range/Units 15:26 05:20 WBC (4.0-11.0) K/uL RBC (4.30-5.90) M/uL Hgb 8.9 L (12.0-16.0) g/dL Hct 26.7 L (36.0-46.0) % MCV (80.0-98.0) fL MCH (27.0-32.0) pg MCHC (31.0-37.0) g/dL RDW Std Deviation (28.0-62.0) fl RDW Coeff of Reza (11.0-15.0) % Plt Count (150-400) K/uL MPV (7.40-12.00) fL Nucleated RBC % /100WBC Nucleated RBCs # K/uL Membrane Rupture Blood Type Antibody Screen Screen NEGATIVE (NEGATIVE) RhIG Candidate? YES Rhogam Indicated YES, BABY RH POS H Crossmatch Med Orders - Current: Current Medications Bisacodyl (Dulcolax) 10 mg RECTAL ONETIME PRN PRN Reason: Constipation Diphenhydramine HCl (Benadryl) 25 mg IVPUSH Q6H PRN PRN Reason: Itching or Nausea Docusate Sodium (Colace) 100 mg PO BID [facility] Last Admin: 09/11/19 08:35 Dose: 100 mg Emollient Ointment (Lansinoh Hpa) 0 gm TOP ASDIRECTED PRN PRN Reason: Sore Nipples Lactated Ringer's (Ringers, Lactated) 1,000 mls @ 500 mls/hr IV BOLUS [facility] Last Admin: 09/10/19 13:23 Dose: 999 mls/hr Oxytocin/Sodium Chloride (Oxytocin 30 Unit/500 Ml-Ns) 30 unit in 500 mls @ 250 mls/hr IV TITRATE [facility] Tranexamic Acid 1,000 mg/ (Sodium Chloride) 110 mls @ 660 mls/hr IV ONETIME PRN PRN Reason: Bleeding Lactated Ringer's (Ringers, Lactated) 1,000 mls @ 125 mls/hr IV ASDIRECTED [facility] Last Admin: 09/10/19 17:25 Dose: 125 mls/hr Ibuprofen (Motrin) 800 mg PO Q8H PRN PRN Reason: mild pain or fever Ketorolac Tromethamine (Toradol) 30 mg IVPUSH Q6H [facility] Stop: 09/11/19 15:01 Last Admin: 09/11/19 08:35 Dose: 30 mg Methylergonovine Maleate (Methergine) 0.2 mg IM ONETIME PRN PRN Reason: Excessive Vaginal Bleeding Misoprostol (Cytotec) 1,000 mcg RECTAL ONETIME PRN PRN Reason: excessive bleeding Ondansetron HCl (Zofran) 4 mg IVPUSH Q4H PRN PRN Reason: Nausea/Vomiting Oxycodone/Acetaminophen (Percocet 325-5 Mg) 1 tab PO Q4H PRN PRN Reason: Pain (moderate 4-6) Oxycodone/Acetaminophen (Percocet 325-5 Mg) 1 tab PO Q4H PRN PRN Reason: Pain (moderate 4-6) Oxycodone/Acetaminophen (Percocet 325-5 Mg) 2 tab PO Q4H PRN PRN Reason: Pain (moderate 4-6) Oxytocin (Pitocin) 10 unit IM ASDIRECTED PRN PRN Reason: Excessive Vaginal Bleeding Sodium Chloride (Saline Flush) 10 ml FLUSH ASDIRECTED PRN PRN Reason: Keep Vein Open Sodium Chloride (Saline Flush) 2.5 ml FLUSH ASDIRECTED PRN PRN Reason: Keep Vein Open Sodium Chloride (Normal Saline) 10 ml IV ASDIRECTED PRN PRN Reason: IV Use Discontinued Medications Citric Acid/Sodium Citrate (Bicitra Solution) 30 ml PO ONETIME ONE Stop: 09/10/19 13:12 Last Admin: 09/10/19 13:35 Dose: 30 ml Diphtheria/Tetanus/Acell Pertussis (Adacel) 0.5 ml IM .ONCE ONE Stop: 09/10/19 15:37 Cefazolin Sodium/Dextrose 2 gm (/ Premix) 50 mls @ 100 mls/hr IV ONETIME ONE Stop: 09/10/19 13:40 Last Admin: 09/11/19 03:21 Dose: Not Given Ketorolac Tromethamine (Toradol) Confirm Administered Dose 30 mg .ROUTE .STK- MED ONE Stop: 09/10/19 15:05 Last Admin: 09/11/19 03:21 Dose: Not Given Morphine Sulfate (Duramorph Pf) Confirm Administered Dose 10 mg .ROUTE .STK-MED ONE Stop: 09/10/19 13:27 Octyl Cyanoacrylate (Dermabond Advance) Confirm Administered Dose 1 applic .ROUTE .STK-MED ONE Stop: 09/10/19 14:26 Ondansetron HCl (Zofran) Confirm Administered Dose 4 mg .ROUTE .STK-MED ONE Stop: 09/10/19 13:24 Oxytocin (Pitocin) Confirm Administered Dose 10 unit .ROUTE .STK-MED ONE Stop: 09/10/19 13:24 Phenylephrine HCl (Phenylephrine In Ns 100 Mcg/Ml) Confirm Administered Dose 1 mg .ROUTE .STK-MED ONE Stop: 09/10/19 13:24 Phenylephrine HCl (Phenylephrine In Ns 100 Mcg/Ml) Confirm Administered Dose 2 mg .ROUTE .STK-MED ONE Stop: 09/10/19 13:25 Phenylephrine HCl (Darwin-Synephrine) Confirm Administered Dose 10 mg .ROUTE .STK- MED ONE Stop: 09/10/19 13:30 Propofol (Diprivan 20 Ml) Confirm Administered Dose 200 mg .ROUTE .STK-MED ONE Stop: 09/10/19 13:50 - Interaction Infant Disposition, : in Room with Family Infant Interaction: Holding Infant Feeding: Attempted ; Nursed Fair/Poor Support Person: Significant Other - Recovery Exam Fundal Tone: Firm Fundal Level: 1 Fingerbreadths Below Umbilicus Fundal Placement: Midline Lochia Amount: Scant Lochia Color: Rubra/Red Perineum Description: Intact, Minimal Bruising/Swelling Episiotomy/Laceration: None Bladder Status: Voiding Urinary Elimination: Indwelling Catheter - Exam General: Alert, Oriented HEENT: Pupils Equal Neck: Supple Lungs: Clear to Auscultation, Normal Respiratory Effort Cardiovascular: Regular Rate, Regular Rhythm GI/Abdominal Exam: Normal Bowel Sounds, Soft, Non-Tender, No Organomegaly, No Distention, No Abnormal Bruit, No Mass, Pelvis Stable Extremities: Normal Inspection, Normal Range of Motion, Non-Tender, No Pedal Edema, Normal Capillary Refill Skin: Warm, Dry, Intact Wound/Incisions: Healing Well Neurological: No New Focal Deficit Psy/Mental Status: Alert, Normal Affect, Normal Mood - Problem List Review Problem List Initiated/Reviewed/Updated: Yes - My Orders Last 24 Hours: My Active Orders 09/10/19 12:13 Vital Signs [RC] Q1H Resuscitation Status Routine 09/10/19 13:11 Up ad Sharyn [RC] ASDIRECTED Sodium Chloride 0.9% [Normal Saline] 10 ml IV ASDIRECTED PRN Sodium Chloride 0.9% [Saline Flush] 10 ml FLUSH ASDIRECTED PRN Sodium Chloride 0.9% [Saline Flush] 2.5 ml FLUSH ASDIRECTED PRN Peripheral IV Insertion Adult [OM.PC] Routine Schedule Procedure [COMM] Per Unit Routine 09/10/19 13:13 Notify Provider Vital Signs [RC] PRN GBS [CULTURE GROUP B STREP] [RM] Routine 09/10/19 13:15 Lactated Ringers [Ringers, Lactated] 1,000 ml IV BOLUS Oxytocin/0.9 % Sodium Chloride [Oxytocin 30 Unit/500 ML-NS] 30 unit in 500 ml IV TITRATE 09/10/19 13:34 RED BLOOD CELLS LP [BBK] Routine RPR (SYPHILIS SERO) W/ RFLX [REF] Routine TYPE AND SCREEN [BBK] Routine 09/10/19 14:47 Acetaminophen/oxyCODONE [Percocet 325-5 MG] 1 tab PO Q4H PRN Acetaminophen/oxyCODONE [Percocet 325-5 MG] 2 tab PO Q4H PRN Lanolin [Lansinoh HPA] See Dose Instructions TOP ASDIRECTED PRN Methylergonovine [Methergine] 0.2 mg IM ONETIME PRN Ondansetron [Zofran] 4 mg IVPUSH Q4H PRN Oxytocin [Pitocin] 10 unit IM ASDIRECTED PRN Tranexamic Acid [Cyklokapron] 1,000 mg Sodium Chloride 0.9% [Normal Saline] 100 ml IV ONETIME bisacodyL [Dulcolax] 10 mg RECTAL ONETIME PRN diphenhydrAMINE [Benadryl] 25 mg IVPUSH Q6H PRN miSOPROStoL [Cytotec] 1,000 mcg RECTAL ONETIME PRN 09/10/19 14:48 Patient Status [ADT] Routine Ambulate [RC] PER UNIT ROUTINE Antiembolic Devices [RC] PER UNIT ROUTINE Communication Order [RC] PER UNIT ROUTINE Communication Order [RC] PER UNIT ROUTINE Communication Order [RC] Per Unit Routine May Shower [RC] ASDIRECTED RT Incentive Spirometry [RC] Q2HWA Assess Lochia [WOMSER] Per Unit Routine Assess Uterine Involution [WOMSER] Per Unit Routine Breast Pump [WOMSER] Per Unit Routine Peripheral IV Discontinue [OM.PC] Routine Sequential Compression Device [OM.PC] Per Unit Routine 09/10/19 15:00 Ketorolac [Toradol] 30 mg IVPUSH Q6H Lactated Ringers [Ringers, Lactated] 1,000 ml IV ASDIRECTED 09/10/19 15:36 Vaccines to be Administered [RC] PER UNIT ROUTINE 09/10/19 21:00 Docusate Sodium [Colace] 100 mg PO BID 09/10/19 Dinner Regular Diet [DIET] 09/11/19 21:00 Ibuprofen [Motrin] 800 mg PO Q8H PRN - Assessment Assessment:: Status post primary section doing okay for care will send the patient home in a.m. - Plan Plan:: This patient is 35 weeks plus she is confirmed by marginal placenta previa by repeated ultrasound she presented today in labor and delivery with active bleeding passing copious amount of blood clots speculum examination shows copious amount of blood in the vagina and decision made to do primary low transverse section
--- NOTE | 2019-09-11 10:48 | PCM48HPAN ---
Post Anesthesia Note - EVALUATION WITHIN 48HRS OF ANESTHETIC Vital Signs in Normal Range: Yes Patient Participated in Evaluation: Yes Respiratory Function Stable: Yes Airway Patent: Yes Cardiovascular Function Stable: Yes Hydration Status Stable: Yes (Well controlled) Pain Control Satisfactory: Yes Nausea and Vomiting Control Satisfactory: Yes Mental Status Recovered: Yes Vital Signs: Last Vital Signs Temp 37.0 C 09/11/19 08:00 Pulse 66 09/11/19 10:00 Resp 16 09/11/19 10:00 BP 110/55 L 09/11/19 08:00 Pulse Ox 95 09/11/19 10:00 - COMMENTS/OBSERVATIONS Free Text/Narrative:: Doing well. No problems noted at present.
[2019-09-11] MEDS: Acetaminophen/oxyCODONE 325-5 MG Tab PO PRN (19:49)
[2019-09-11] MEDS: Ibuprofen 800 MG Tab PO PRN (22:13)
[2019-09-12] MEDS: Acetaminophen/oxyCODONE 325-5 MG Tab PO PRN ×3 (03:06→12:08)
[2019-09-12] MEDS: Ibuprofen 800 MG Tab PO PRN (07:34)
--- NOTE | 2019-09-12 08:21 | PCM.PNPP ---
- General Info Date of Service: 09/12/19 Admission Dx/Problem (Free Text): Patient Status Order with Admit Dx/Problem 09/10/19 12:05 Patient Status [ADT] Routine 09/10/19 13:00 Patient Status [ADT] Routine 09/10/19 14:48 Patient Status [ADT] Routine Admission Diagnosis/Problem Admission Diagnosis/Problem Functional Status: Reports: Pain Controlled, Tolerating Diet, Ambulating, Urinating - Review of Systems General: Reports: No Symptoms HEENT: Reports: No Symptoms Pulmonary: Reports: No Symptoms Cardiovascular: Reports: No Symptoms Gastrointestinal: Reports: No Symptoms Genitourinary: Reports: No Symptoms Musculoskeletal: Reports: No Symptoms Skin: Reports: No Symptoms Neurological: Reports: No Symptoms Psychiatric: Reports: No Symptoms - General Info Date of Service: 09/12/19 - Patient Data Vital Signs - Most Recent: Last Vital Signs Temp 36.6 C 09/12/19 07:35 Pulse 75 09/12/19 07:35 Resp 15 09/12/19 07:35 BP 133/80 09/12/19 07:35 Pulse Ox 99 09/12/19 07:35 Weight - Most Recent: 68.039 kg I&O - Last 24 Hours: Intake & Output 09/11/19 09/12/19 09/12/19 22:59 06:59 14:59 Output Total 850 Balance -850 Med Orders - Current: Current Medications Bisacodyl (Dulcolax) 10 mg RECTAL ONETIME PRN PRN Reason: Constipation Diphenhydramine HCl (Benadryl) 25 mg IVPUSH Q6H PRN PRN Reason: Itching or Nausea Docusate Sodium (Colace) 100 mg PO BID [facility] Last Admin: 09/11/19 21:14 Dose: Not Given Emollient Ointment (Lansinoh Hpa) 0 gm TOP ASDIRECTED PRN PRN Reason: Sore Nipples Lactated Ringer's (Ringers, Lactated) 1,000 mls @ 500 mls/hr IV BOLUS [facility] Last Admin: 09/10/19 13:23 Dose: 999 mls/hr Oxytocin/Sodium Chloride (Oxytocin 30 Unit/500 Ml-Ns) 30 unit in 500 mls @ 250 mls/hr IV TITRATE [facility] Tranexamic Acid 1,000 mg/ (Sodium Chloride) 110 mls @ 660 mls/hr IV ONETIME PRN PRN Reason: Bleeding Lactated Ringer's (Ringers, Lactated) 1,000 mls @ 125 mls/hr IV ASDIRECTED TEJ Last Admin: 09/10/19 17:25 Dose: 125 mls/hr Ibuprofen (Motrin) 800 mg PO Q8H PRN PRN Reason: mild pain or fever Last Admin: 09/12/19 07:34 Dose: 800 mg Methylergonovine Maleate (Methergine) 0.2 mg IM ONETIME PRN PRN Reason: Excessive Vaginal Bleeding Misoprostol (Cytotec) 1,000 mcg RECTAL ONETIME PRN PRN Reason: excessive bleeding Ondansetron HCl (Zofran) 4 mg IVPUSH Q4H PRN PRN Reason: Nausea/Vomiting Oxycodone/Acetaminophen (Percocet 325-5 Mg) 1 tab PO Q4H PRN PRN Reason: Pain (moderate 4-6) Last Admin: 09/11/19 13:29 Dose: 1 tab Oxycodone/Acetaminophen (Percocet 325-5 Mg) 1 tab PO Q4H PRN PRN Reason: Pain (moderate 4-6) Last Admin: 09/12/19 07:35 Dose: 1 tab Oxycodone/Acetaminophen (Percocet 325-5 Mg) 2 tab PO Q4H PRN PRN Reason: Pain (moderate 4-6) Oxytocin (Pitocin) 10 unit IM ASDIRECTED PRN PRN Reason: Excessive Vaginal Bleeding Sodium Chloride (Saline Flush) 10 ml FLUSH ASDIRECTED PRN PRN Reason: Keep Vein Open Sodium Chloride (Saline Flush) 2.5 ml FLUSH ASDIRECTED PRN PRN Reason: Keep Vein Open Sodium Chloride (Normal Saline) 10 ml IV ASDIRECTED PRN PRN Reason: IV Use Discontinued Medications Citric Acid/Sodium Citrate (Bicitra Solution) 30 ml PO ONETIME ONE Stop: 09/10/19 13:12 Last Admin: 09/10/19 13:35 Dose: 30 ml Diphtheria/Tetanus/Acell Pertussis (Adacel) 0.5 ml IM .ONCE ONE Stop: 09/10/19 15:37 Cefazolin Sodium/Dextrose 2 gm (/ Premix) 50 mls @ 100 mls/hr IV ONETIME ONE Stop: 09/10/19 13:40 Last Admin: 09/11/19 03:21 Dose: Not Given Ketorolac Tromethamine (Toradol) 30 mg IVPUSH Q6H TEJ Stop: 09/11/19 15:01 Last Admin: 09/11/19 14:58 Dose: 30 mg Ketorolac Tromethamine (Toradol) Confirm Administered Dose 30 mg .ROUTE .STK- MED ONE Stop: 09/10/19 15:05 Last Admin: 09/11/19 03:21 Dose: Not Given Morphine Sulfate (Duramorph Pf) Confirm Administered Dose 10 mg .ROUTE .STK-MED ONE Stop: 09/10/19 13:27 Octyl Cyanoacrylate (Dermabond Advance) Confirm Administered Dose 1 applic .ROUTE .STK-MED ONE Stop: 09/10/19 14:26 Last Admin: 09/11/19 19:51 Dose: Not Given Ondansetron HCl (Zofran) Confirm Administered Dose 4 mg .ROUTE .STK-MED ONE Stop: 09/10/19 13:24 Oxytocin (Pitocin) Confirm Administered Dose 10 unit .ROUTE .STK-MED ONE Stop: 09/10/19 13:24 Phenylephrine HCl (Phenylephrine In Ns 100 Mcg/Ml) Confirm Administered Dose 1 mg .ROUTE .STK-MED ONE Stop: 09/10/19 13:24 Phenylephrine HCl (Phenylephrine In Ns 100 Mcg/Ml) Confirm Administered Dose 2 mg .ROUTE .STK-MED ONE Stop: 09/10/19 13:25 Phenylephrine HCl (Darwin-Synephrine) Confirm Administered Dose 10 mg .ROUTE .STK- MED ONE Stop: 09/10/19 13:30 Propofol (Diprivan 20 Ml) Confirm Administered Dose 200 mg .ROUTE .STK-MED ONE Stop: 09/10/19 13:50 - Infant Interaction Disposition, : [place] in Room with Family Interaction: Holding Feeding: Attempted ; Nursed Fair/Poor Support Person: Significant Other - Recovery Exam Fundal Tone: Firm Fundal Level: 1 Fingerbreadths Below Umbilicus Fundal Placement: Midline Lochia Amount: Scant Lochia Color: Brownish Perineum Description: Intact, Minimal Bruising/Swelling Episiotomy/Laceration: None Bladder Status: Voiding Urinary Elimination: Indwelling Catheter - Exam General: Alert, Oriented, Cooperative, No Acute Distress Lungs: Normal Respiratory Effort GI/Abdominal Exam: Soft, Non-Tender Extremities: Normal Range of Motion Skin: Warm, Dry, Intact Wound/Incisions: Healing Well. No: Erythema Neurological: No New Focal Deficit, Normal Speech, Normal Tone, Sensation Intact Psy/Mental Status: Alert, Normal Affect, Normal Mood - Problem List & Annotations (1) Placenta previa affecting delivery SNOMED Code(s): 96511035, 079954521 Code(s): O44.00 - COMPLETE PLACENTA PREVIA NOS OR WITHOUT HEMOR, UNSP TRI Status: Acute Priority: High Current Visit: Yes (2) Supervision of normal IUP (intrauterine ) in primigravida SNOMED Code(s): 52311251, 391917269, 566275711, 509298607 Code(s): Z34.00 - ENCNTR FOR SUPRVSN OF NORMAL FIRST , UNSP TRIMESTER Status: Acute Priority: High Current Visit: Yes Qualifiers: Trimester: third trimester Qualified Code(s): Z34.03 - Encounter for supervision of normal first , third trimester (3) delivery due to maternal disorder SNOMED Code(s): 806991394 Code(s): O99.89 - OTH DISEASES AND CONDITIONS COMPL PREG/CHLDBRTH Status: Acute Priority: High Current Visit: Yes - Problem List Review Problem List Initiated/Reviewed/Updated: Yes - Assessment Assessment:: Status post primary section doing okay for care will send the patient home in a.m. - Plan Plan:: This patient is 35 weeks plus she is confirmed by marginal placenta previa by repeated ultrasound she presented today in labor and delivery with active bleeding passing copious amount of blood clots speculum examination shows copious amount of blood in the vagina and decision made to do primary low transverse section PPD#2 A: VSS, AF, lochia small, MLE healing well, breast feeding well. P: Discharge home today with infant. Follow up 6 weeks or prn
[2019-09-12] MEDS: Docusate Sodium 100 MG Cap PO SCH (09:55)
== END 2019-09-12 16:17 | disposition home or self-care (01) | DRG 788 ==
LOC: MW.OBCHECK 11:52 → MW.OB 11:52 → OBSVTOIN 13:00 → MW.OBCHECK 13:00 → MW.OB 18:03
PROVIDERS: ADMIT Obstetrics & Gynecology; ATTEND Obstetrics & Gynecology
PROC: 10D00Z1 Extraction of Products of Conception, Low, Open Approach (ICD-10-PCS; principal; 2019-09-10)
PROC: 3E0334Z Introduction of Serum, Toxoid and Vaccine into Peripheral Vein, Percutaneous Approach (ICD-10-PCS; 2019-09-10)
DX: O44.23 Partial placenta previa NOS or without hemorrhage, third trimester (principal); O26.893 Other specified pregnancy related conditions, third trimester; Z67.11 Type A blood, Rh negative; Z3A.35 35 weeks gestation of pregnancy; Z37.0 Single live birth
CPT/HCPCS: 36415; 36430; 59025; 84112; 85014; 85018; 85027; 85460; 86592; 86850; 86900; 86901; 86920; 86921; 86922; 87081; A9270-GY; J1885; J2270; J2370; J2405; J2590; J2704; J2792; J7120